=== PATIENT | female | born 1990 | race Caucasian/White ===

== ENCOUNTER 2016-07-03 01:32 | Inpatient (IN) | payer OTHER ==
[~2016-07-03] VITALS: Ht 152.4 cm; Wt 99.3 kg
[2016-07-05] MEDS ORDERED: Oxytocin 30 Units/500 mL LR 30 UNITS in IV Premix 1 EACH IV PRN (08:25)
[2016-07-05] MEDS ORDERED: Hemorrhage Kit, Post Partum XX ONE (08:25)
[2016-07-05] MEDS ORDERED: Methylergonovine 0.2 mg/mL Inj IM PRN (08:25)
[2016-07-05] MEDS ORDERED: Carboprost 250 mCg/mL Inj IM PRN (08:25)
[2016-07-05] MEDS ORDERED: Ondansetron 2 mg/mL 2 mL Inj IVPUSH PRN ×2 (08:25→20:20)
[2016-07-05] MEDS ORDERED: Penicillin G K Inj 5,000,000 UNITS in Dextrose 5% Minibag Plus 100 ML IV ONE (08:25)
[2016-07-05] MEDS ORDERED: fentaNYL-PF 50 mCg/mL 2 mL Inj IVPUSH PRN (08:25)
[2016-07-05] MEDS ORDERED: Lactated Ringer's 1,000 ML IV PRN (08:25)
[2016-07-05] MEDS ORDERED: Oxytocin 10 Unit/mL Inj IM PRN (08:25)
[2016-07-05] MEDS: Lactated Ringer's 1,000 ML IV SCH ×3 (09:30→20:16)
[2016-07-05] MEDS: Misoprostol 25 mCg/0.25 Tablet VAGINAL SCH ×2 (09:30→13:39)
[2016-07-05 09:34] LABS: Mean Corpuscular Hemoglobin 29.6 pg (27.0-35.0); Mean Corpuscular Volume 83.7 fL (81-100)
[2016-07-05] MEDS ORDERED: PREN-12 PO (11:19)
[2016-07-05] MEDS: Penicillin G K Inj 3,000,000 UNITS in IV Premix 1 EACH IV SCH ×2 (13:30→17:59)
[2016-07-05] MEDS: Sodium Chloride LOK Flush 10 mL Syringe IVFLUSH PRN ×2 (13:38→17:59)
[2016-07-05] MEDS ORDERED: Lactated Ringer's 500 ML IV ONE (20:16)
--- NOTE | 2016-07-05 20:17 | PCM.HPANE ---
Patient Data Surgeon Admitting Provider:Padmini Orozco MD Attending Provider:Padmini Orozco MD Primary Care Physician:Elsa Other Provider:Kunal Ronquillo Anesthesia Reason for Visit Induction INDUCTION Ht/WT & BMI Body Mass Index Allergies Coded Allergies: No Known Allergies (Unverified , 07/05/16) Past Anesthesia History Anesthesia History: Denies:: Abnormal Airway, Anesthesia Reactions, Difficult Intubation, Fam Anesthesia Reaction, Fam Malignant Hypertherm, Malignant Hyperthermia Medications Reported Medications Vit W-Ca,Fe,FA(<1 mg) ( Formula)1 Each Tablet1 Each PO DAILY 07/05/16 History History of ENT Problems?: No HEENT History: Denies:: Abnormal Airway Cataracts Difficult Intubation Dysphagia Glaucoma Hearing Problem Sinus Problem TMJ Denture Type: None Teeth Condition: Within Normal Limits Hx of Heart Problems?: No Cardiovascular History: Denies:: AICD Abdominal Aortic Aneurism Atrial Fibrillation Cardiac Surgery Chest Pain Congestive Heart Failure Coronary Artery Disease Edema Heart Murmur Hypertension Irregular Heartbeat Pacemaker Peripheral Vascular Rheumatic Fever Thrombophlebitis Valvular Heart Disease Hx of Respiratory Problem?: No Respiratory History: Denies:: Asthma COPD Chest Surgery Cough Dyspnea Emphysema Hemoptysis Oxygen Administration Pneumonia Pulmonary Embolism Tuberculosis Use of C-PAP Machine Use of Inhalers / NEBS Hx Neurologic Problems?: No Hx of GI Problems?: No Gastrointestinal History: Denies:: Cirrhosis Diverticulitis Gall Bladder Disease Gastroesphageal Reflux Gastrointestinal Bleeding Heartburn Hepatitis Hiatal Hernia Liver Disease Rectal Bleeding Hx of Problems?: No HX of Peritoneal Dialysis: No Female Hx: Denies:: Currently Endometriosis Pelvic Inflammatory Problems with Breasts? Skin History: Denies:: History Skin Disorders? Pressure Ulcers Hx Musculoskeletal Problems?: No Musculoskeletal History: Denies:: Back Injury Degenerative Joint Fibromyalgia Joint Replacement Musculoskeletal Trauma Myasthenia Gravis Osteoarthritis Rheumatoid Arthritis Systemic Lupus Hx of Psycho/Social Problems?: No Psycho Social History: Denies:: Anxiety Bipolar Disorder Hx Depression Suicide Attempt Hx Surgeries?: No Hx Any Other Health Problems?: No Other History: Denies:: Cancer Endocrine Disease Hospitalization Thyroid Disease Hx Diabetes: No Hx Alcohol Use: NoHx Substance Use: No Smoking Status: Never Smoker Have You Smoked inLast 12 mo: No Stop/Bang Risk Assessment Category Category 1A: Patient has history of documented sleep apnea, and HAS NOT received any narcotic, sedative or anesthesia administration during this stay. Category 1B: Patient has history of documented sleep apnea, and HAS received any narcotic , sedative or anesthesia administration during this stay Category 2: Patient has SUSPECTED Obstructive Sleep Apnea, and HAS received any narcotic , sedative or anesthesia administration during this stay. Category 3: Patient has SUSPECTED Obstructive Sleep Apnea and HAS NOT received narcotic, sedative or anesthesia administration during this stay. Category 4: Outpatient in Procedural Areas with known sleep apnea or who screen positive for High Risk via the STOP/BANG questionnaire. Exam Exam General Appearance: Alert, Oriented X3, Cooperative, Severe Distress HEENT/AIRWAY: MP 2, Neck Movement (from), Mouth Opening (wnl) Lungs: Clear to Auscultation Heart: Exam Unremarkable Meds/Labs/Diagnostics Admission Meds Current Medications Penicillin G Potassium 7577727 units/Dextrose/ Water 100 ml @ 240 mls/hr ONCE ONCE IV Last administered on 07/05/16 09:30; Start 07/05/16 at 08:25; Stop at 08:49; Status DC Penicillin G Potassium/ Dextrose [id number] units/Premix 50 ml @ 100 mls/hr Q4 IV Last administered on 07/05/16 17:59; Start 07/05/16 at 12:30 Lactated Ringer's (Lr) 1,000 ml @ 125 mls/hr Q8H IV Last administered on 13:38; Start 07/05/16 at 08:41 Misoprostol (Cytotec) 25 mcg Q4H VAGINAL Last administered on 07/05/16 13:39; Start 07/05/16 at 08:45 Labs Test 07/05/16 09:10 White Blood Count 9.5th/mm3 (3.8-10.1) Red Blood Count 4.43mil/mm3 (3.90-5.20) Hemoglobin 13.1g/dL (12.0-15.6) Hematocrit 37.1% (35.0-46.0) Mean Corpuscular Volume 83.7fL (81-100) Mean Corpuscular Hemoglobin 29.6pg (27.0-35.0) Mean Corpuscular Hemoglobin Concent 35.3% (32.0-37.0) Red Cell Distribution Width 13.8% (12.3-15.4) Platelet Count 192bil/L (150-400) Plan Impression Patient chart reviewed, patient interviewed and anesthestic plan with risks, benefits, and alternatives discussed, and informed consent obtained. ASA Physical Status: ASA3 Severe Disease Anesthetic Plan: Epidural Bene/Risks/Altern/Consents: Yes HP Complete Prior to Induction: Yes Wellington Jones MD July 05, 2016 20:17
[2016-07-05] MEDS ORDERED: EPHEDrine Sulfate 50 mg/mL Inj IVPUSH PRN (20:20)
[2016-07-05] MEDS ORDERED: fentaNYL 2 mCg/mL-Bupiv 0.125% 100 ML EPIDURAL SCH (20:20)
[2016-07-05] MEDS ORDERED: Atropine 1 mg/10 mL (Code) Syringe IVPUSH PRN (20:20)
[2016-07-06] MEDS: Lactated Ringer's 1,000 ML IV SCH ×5 (00:52→16:52)
[2016-07-06] MEDS ORDERED: Hemorrhage Kit, Post Partum XX ONE (00:55)
[2016-07-06] MEDS ORDERED: LANOlin HPA 7 Gm Ointment TOPICAL PRN (00:55)
[2016-07-06] MEDS ORDERED: Methylergonovine 0.2 mg/mL Inj IM PRN (00:55)
[2016-07-06] MEDS ORDERED: Carboprost 250 mCg/mL Inj IM PRN (00:55)
[2016-07-06] MEDS ORDERED: Oxytocin 10 Unit/mL Inj IM PRN (00:55)
[2016-07-06] MEDS ORDERED: Oxytocin 30 Units/500 mL LR 30 UNITS in IV Premix 1 EACH IV PRN (00:55)
[2016-07-06] MEDS ORDERED: oxyCODONE-Acetamin 5-325 mg Tablet PO PRN (00:55)
[2016-07-06] MEDS: Benzocaine (Dermoplast) 20% 60 Gm Spray TOPICAL PRN ×2 (04:48→19:16)
[2016-07-06] MEDS: Witch Hazel-Glycerin Pads TOPICAL PRN ×2 (04:48→19:16)
--- NOTE | 2016-07-06 14:11 | HP ---
[address] [address] HISTORY AND PHYSICAL PATIENT: BRANDEN FARR : 1990 MR#: [id number] ADMIT: 07/05/2016 JOB ID: [id number] DATE OF ADMISSION: 07/05/2016 HISTORY OF PRESENT ILLNESS: This patient is a 25-year-old, 1, para 0, at 40 weeks and 1 day, estimated due date was yesterday, July 04, 2016. The patient is being admitted for an elective induction of labor at 40 weeks and 1 day. Her mother and sister came to visit her from out of state and staying with her through the weekend only, they would like to support her during delivery and early . The patient's care was relatively uncomplicated. She has been seen in the office on July 02, 2016. There was no significant cervical change on exam two weeks ago. The cervix was 2 cm dilated, soft, posterior, station -3. PAST MEDICAL HISTORY: Noncontributory. SOCIAL HISTORY: Patient denies smoking, alcohol, illicit or recreational drug use. LABORATORY DATA: Today the labs were reviewed. She is blood group and type 0-negative, antibody screen negative. Rubella immune. Varicella immune. Group B strep culture positive. PHYSICAL EXAMINATION: Vital signs: Blood pressure 125/83, pulse 72, respiratory rate 18, temperature 37.1. HEENT: PERRLA. Neurologic exam: The patient is awake, alert, oriented x3. Deep tendon reflexes 2+ bilaterally equal. Full range of motion of extremities. Cardiovascular system: Regular rate and rhythm. Respiratory system: Breath sounds clear bilaterally, good respiratory effort. The abdomen is gravid, fundal height at 41 cm, nontender, nondistended. Extremities: No calf tenderness, trace pitting edema. Pelvic exam: The cervix is 2 cm dilated, 50% effaced, station -3. Intact membranes. No vaginal spotting. Vasquez score of 4. ASSESSMENT AND PLAN: A 25-year-old, 1, para 0, at 40 weeks and 1 day, being admitted for elective induction of labor. Different methods of induction were discussed with the patient and induction consent was obtained. Penicillin prophylaxis started for GBS positive status. We spoke about all cervical ripening agents, the patient has chosen to have Cytotec vaginally that was placed. IV fluids started with lactated Ringer at 125 mL/h. RhoGAM injection was discussed.
--- NOTE | 2016-07-06 15:29 | OP ---
[address] [address] OPERATIVE REPORT PATIENT: BRANDEN AFRR : 1990 MR#: [id number] ADMIT: 07/05/2016 JOB ID: [id number] DATE OF SURGERY: 07/06/2016 SURGEON: Willie Rodriguez M.D. PREOPERATIVE DIAGNOSIS(ES): A 25-year-old 1, para 0 at 40 weeks and 1 day, elective induction of labor due to family circumstances. POSTOPERATIVE DIAGNOSIS(ES): A 25-year-old 1, para 1 status post spontaneous vaginal delivery at term. DELIVERY SUMMARY: The patient is a 25-year-old 1, para 1 now, who came to Labor and Delivery in the morning of July 05, 2016 for induction of labor at 40 weeks and 1 day. Her estimated due date was July 04, 2016. The patient had a family member who had to support her during delivery and early . They came from out of state and the patient was willing to be induced at 40 weeks. The initial examination at delivery showed the cervix 2 cm dilated, 50% effaced, -3 station, Vasquez score of 4. The patient signed the induction consent, she received two doses of Cytotec vaginally and gradually the cervix became more favorable, 3 cm dilated, 80% effaced, -1 station at 4 o'clock p.m. July 05, 2016. The patient had spontaneous rupture of membranes, was ambulating, occasionally developed increasing contractions and frequency and intensity. She progressed to full dilation at 10 p.m., was laboring down until midnight. At that time, the was descended down. The station of the head was at +2 to +3. The patient started to push. She underwent spontaneous vaginal delivery at 12:27 a.m. July 06, 2016 and delivered a male with weight 2724 g, scores 9 at one minute and 9 at five minutes. Delayed cord clamping was done for 1 minute. The floor finisher was present at delivery. The patient delivered the placenta at 12:32 a.m. July 06, 2016. It was found to be intact with three-vessel cord. She had first degree midline vaginal laceration that was repaired with 3-0 Vicryl. Estimated blood loss was 300 mL. Pitocin was started shortly after delivery of the . All instruments and sponge counts were correct x2.
[2016-07-07 07:07] LABS: Mean Corpuscular Hemoglobin 29.3 pg (27.0-35.0); Mean Corpuscular Volume 88.7 fL (81-100)
--- NOTE | 2016-07-07 11:14 | PCM.DIOB ---
Obstetrical Disch Instruction Date of Service: July 07, 2016 Dates of Hospitalization Date of Hospital Admission July 05, 2016 at 07:14 Providers Admitting Physician: Padmini Orozco MD Primary Care Physician: Noposcar Attending Physician: Padmini Orozco MD Discharge Diagnosis Discharge Diagnosis PPD#1 S/P , anemia Problems: Diet Discharge Diet: No restrictions Activity Discharge Activity-General: Pelvic Rest for 6 weeks, No lifting >10 pounds for 4-6 weeks Dressing and Incisional Care Hygiene: June shower Follow Up Plan Follow-up Provider (F9): Willie Rodriguez MD Follow-up appointment: Weeks (2) Call your provider for: Fever or Chills, Shortness of breath, Heavy vaginal bleeding, Other (excessive pain not controlled with pain medications.) Harjinder Calixto MD July 07, 2016 11:14
[2016-07-07] MEDS ORDERED: ASCO500S2 PO (11:16)
[2016-07-07] MEDS ORDERED: IBUP-1827 PO (11:16)
[2016-07-07] MEDS ORDERED: FERR-83 PO (11:16)
[2016-07-07] MEDS ORDERED: DOCU-41 PO (11:16)
[2016-07-07] MEDS ORDERED: PREN-12 PO (11:16)
[2016-07-07 11:33] VITALS: BP 113/71; PULSE 97; RESP 18
--- NOTE | 2016-07-07 16:44 | DIS ---
[address] [address] DISCHARGE SUMMARY PATIENT: BRANDEN FARR : 1990 MR#: [id number] ADMIT: 07/05/2016 JOB ID: [id number] DIS: 07/07/2016 DISCHARGE DIAGNOSIS: day number one, status post spontaneous vaginal delivery. HOSPITAL COURSE: For further details, please refer to the fully dictated notes. On the day of discharge, the patient had no complaints, voiding, ambulating, tolerating p.o. intake p.o. intake, breast-feeding with no difficulties. OBJECTIVE: Vital signs are 113/71 for blood pressure, respirations are 18, pulse is 97, temperature 36.9 degrees centigrade. Heart is regular rate and rhythm. Positive S1, S2. Lungs clear to auscultation bilaterally. Abdomen firm. Uterine fundus palpated at 1 cm below the umbilicus. Nontender. Positive bowel sounds. Perineum: No active bleeding. Lower extremities: No calf tenderness appreciated bilaterally. H and H this morning is 10.9 and 33.0. DISCHARGE PLAN: Patient will be discharged home in a stable condition. Will follow up with Dr. Rodriguez in the office in two weeks. Instructed to have nothing in the vagina for six weeks. No heavy lifting more than baby's weight. Instructed to call for fever, chills, severe abdominal pain, uncontrolled by pain medication, heavy vaginal bleeding, or any other concerning symptoms. DISCHARGE MEDICATIONS: 1- vitamins once daily, 2- Ibuprofen 600 mg every 6 hours, 3- Ferrous sulfate 325 mg twice daily, 4- vitamin C 500 mg twice daily and 5- Colace 100 mg twice daily. Patient understood the discharge instructions. She will comply with her discharge plan. PRUDENCIO
== END 2016-07-07 12:43 | disposition home or self-care (01) | DRG 775 ==
LOC: FBC 07-05 07:14
PROVIDERS: ADMIT Obstetrics & Gynecology; ATTEND Legal Medicine
PROC: 3E033VJ Introduction of Other Hormone into Peripheral Vein, Percutaneous Approach (ICD-10-PCS; 2016-07-05)
PROC: 10E0XZZ Delivery of Products of Conception, External Approach (ICD-10-PCS; principal; 2016-07-06)
PROC: 0HQ9XZZ Repair Perineum Skin, External Approach (ICD-10-PCS; 2016-07-06)
PROC: 3E0234Z Introduction of Serum, Toxoid and Vaccine into Muscle, Percutaneous Approach (ICD-10-PCS; 2016-07-06)
DX: O70.0 First degree perineal laceration during delivery (principal); O36.0930 Maternal care for other rhesus isoimmunization, third trimester, not applicable or unspecified; O99.824 Streptococcus B carrier state complicating childbirth; O90.81 Anemia of the puerperium; D64.9 Anemia, unspecified; Z3A.40 40 weeks gestation of pregnancy; Z37.0 Single live birth